=== PATIENT | female | born 1975 | race African-American/Black ===

== ENCOUNTER 2016-09-18 22:31 | Emergency (ER) | payer OTHER ==
[~2016-09-18] VITALS: Ht 167.6 cm; Wt 88.8 kg
[~2016-09-18 22:31] MED LIST: AUGMENTIN875 MG PO; CIPRO500 MG PO; MOTRIN600 MG PO; PERCOCET 5/31 TABLET PO; ULTRAM50 MG PO
[2016-09-18] MEDS ORDERED: PREDNISONE20 MG PO (23:30)
[2016-09-18] MEDS ORDERED: PEPCID20 MG PO (23:30)
[2016-09-18] MEDS ORDERED: BENADRYL25 MG PO (23:30)
[2016-09-19] VITALS: BP 111/72
== END 2016-09-19 00:02 | disposition home or self-care (01) ==
LOC: EME 22:31
DX: T78.40XA Allergy, unspecified, initial encounter (principal); R21 Rash and other nonspecific skin eruption; R22.0 Localized swelling, mass and lump, head
CPT/HCPCS: 99281; 99284; J7512

== ENCOUNTER 2016-10-07 00:34 | Emergency (ER) | payer OTHER ==
[~2016-10-07] VITALS: Ht 167.6 cm; Wt 90.0 kg
[~2016-10-07 00:34] MED LIST changes: +BENADRYL25 MG PO; +PEPCID20 MG PO; +PREDNISONE20 MG PO
[2016-10-07 01:32] LABS: CHLORIDE 108 mEq/L (99-109); POTASSIUM 3.4 mEq/L (3.7-5.4); SODIUM 142 mEq/L (136-147)
[2016-10-07 01:34] LABS: GLUCOSE 100 mg/dL (70-99)
[2016-10-07 01:35] LABS: ANION GAP 9 MEQ/L (2-14)
[2016-10-07 01:38] LABS: GFR ESTIMATE (CALCULATED) > 59 mL/min/; UREA NITROGEN (BUN) 7 mg/dL (9-23)
[2016-10-07 01:42] LABS: MCH 22.1 PG (29.0-34.0); MCV 71.3 FL (83-99); MEAN PLAT.VOLUME 10.1 uM^3 (9.5-12.4); PLATELET COUNT 356 K/uL (156-360); RBC DIS.WIDTH-CV 17.4 % (11.8-14.6); RBC DIS.WIDTH-SD 44.3 % (39-53); RED BLOOD COUNT 4.21 M/uL (3.80-5.20); WHITE BLOOD COUNT 9.5 K/uL (4.1-10.2)
[2016-10-07 01:44] LABS: TROP-I INTERPRETATION NEGATIVE; TROPONIN-I < 0.01 ng/mL (0.0-0.30)
[2016-10-07 02:57] VITALS: BP 123/75
== END 2016-10-07 02:58 | disposition home or self-care (01) ==
LOC: EME → EDBD 00:34 → EME 00:34
PROVIDERS: Emergency Medicine
DX: R07.89 Other chest pain (principal); F43.9 Reaction to severe stress, unspecified; F32.9 Major depressive disorder, single episode, unspecified; F41.9 Anxiety disorder, unspecified; R94.31 Abnormal electrocardiogram [ECG] [EKG]
CPT/HCPCS: 71020; 80048; 84484; 85027; 85379; 90839; 93005; 99281; 99285